=== PATIENT | female | born 1945 | race Caucasian/White ===

== ENCOUNTER 2016-10-10 14:56 | Observation (INO) | payer OTHER ==
[~2016-10-10] VITALS: Ht 154.9 cm; Wt 77.1 kg
[2016-10-10] MEDS ORDERED: ASPIRIN 324 MG CHEW PO STA (16:24)
[2016-10-10] MEDS ORDERED: NITROGLYCERIN OINT 2% 1GM PACKET EXT ONE (16:30)
--- NOTE | 2016-10-10 16:56 | DIAGNOSTIC IMAGING REPORT ---
CHEST ONE VIEW PORTABLE CLINICAL HISTORY: Chest pain. COMPARISON STUDY: No previous studies for comparison. FINDINGS: Lung volumes are at the lower limits of normal. There is no consolidation to suggest pneumonia. Pulmonary vascularity is normal. Moderate enlargement of the cardiac silhouette is noted. There may be a cardiac stent. IMPRESSION: 1. No acute cardiopulmonary findings. 2. Moderate cardiomegaly. Electronically signed by: Sanju Gannon M.D. 10/10/2016 4:55 PM Dictated Date/Time: 10/10/2016 4:52 PM
[2016-10-10] MEDS ORDERED: ROSU20TA PO (17:10)
[2016-10-10] MEDS ORDERED: VALS160T60 PO (17:10)
[2016-10-10] MEDS ORDERED: INSU100I2 PO (17:10)
[2016-10-10] MEDS ORDERED: BISO5TAB3 PO (17:10)
[2016-10-10] MEDS ORDERED: FURO-85 PO (17:10)
[2016-10-10] MEDS ORDERED: ALBU18002 INH (17:10)
[2016-10-10] MEDS ORDERED: CHOL20009 PO (17:10)
[2016-10-10] MEDS ORDERED: INSDGIPEN SC (17:10)
[2016-10-10] MEDS ORDERED: ASPI81TA28 PO (17:10)
[2016-10-10] MEDS ORDERED: ISOS30TA3 PO (17:10)
[2016-10-10] MEDS ORDERED: VTMB12 PO (17:10)
[2016-10-10] MEDS ORDERED: GLC/500 PO (17:10)
[2016-10-10] MEDS ORDERED: PANT40TA PO (17:10)
[2016-10-10] MEDS ORDERED: MONT1TAB3 PO (17:10)
[2016-10-10] MEDS ORDERED: OXYB5TAB74 PO (17:10)
[2016-10-10] MEDS ORDERED: RANO500T PO (17:10)
[2016-10-10] MEDS ORDERED: CLOP1TAB15 PO (17:10)
[2016-10-10 17:14] LABS: BASO % 0.2 %; BASO ABS # 0.02 K/uL (0-0.2); COMPLETE YES; EOS % 1.8 %; IG% 0.3 %; LYMPH % 15.1 %; LYMPH ABS # 1.82 K/uL (1.2-3.4); MEAN CELL VOLUME 88.9 fL (80-100); MEAN CORPUSCULAR HEMOGLOBIN 29.1 pg (25-34); MEAN CORPUSCULAR HGB CONC 32.8 g/dl (32-36); NEUT % 71.6 %; PLATELET COUNT 277 K/uL (130-400); WHITE BLOOD COUNT 12.02 K/uL (4.8-10.8)
[2016-10-10 17:26] LABS: PARTIAL THROMBOPLASTIN RATIO 1.1
[2016-10-10 17:40] LABS: BUN/CREATININE RATIO 16.1 (10-20); CALCIUM 9.9 mg/dl (8.5-10.1); CREATININE 0.98 mg/dl (0.60-1.20); POTASSIUM 3.6 mmol/L (3.5-5.1)
--- NOTE | 2016-10-10 18:09 | History and Physical ---
History & Physical Date & Time of Service: Oct 10, 2016 at 18:09 Chief Complaint: Left Chest Pain And Tightness Primary Care Physician: Michael Delatorre D.O. History of Present Illness Source: patient This is a 71 yo F with past medical hx of CAD s/p multiple PTCA done in [facility] , most recent was in last july 2016 her other medical hx includes Type 2 DM . HTN , hyperlipidemia presents to ED with complain of intermittent left sided chest wall pain discomfort, ongoing for last 6-7 days pt mentions last sat night she slept on her left side ,woke up with pain on left chest wall , going below her breast to her back had mild SOB , no chest heaviness ( felt like muscle pull /achy ) no dizzy spell through out these past few days she continued her daily activities , will get occasional pain /discomfort like muscle pull on and off came to ED for evaluation in ED was completely symptom free vitals remains stable initial cardiac markers unremarkable Social History Smoking Status: Never Smoker Allergies Coded Allergies: No Known Allergies (Unverified , 10/10/16) Home Medications Scheduled Aspirin (Aspirin Ec), 81 MG PO DAILY Bisoprolol Fumarate (Zebeta), 10 MG PO DAILY Cholecalciferol (Vitamin D), 2,000 UNITS PO DAILY Clopidogrel (Plavix), 75 MG PO DAILY Cyanocobalamin (Vitamin B-12), 500 MG PO DAILY Insulin Glargine (Lantus Solostar), 16 UNITS SC QPM Insulin Lispro (Human) (Humalog Kwikpen), 4 UNITS PO QAM Isosorbide Mononitrate Ext Rel (Imdur Ext Rel), 30 MG PO QAM Metformin Hcl (Glucophage), 500 MG PO BID Montelukast Sodium (Singulair), 10 MG PO DAILY Oxybutynin Chloride (Ditropan), 5 MG PO BID Pantoprazole (Protonix), 40 MG PO DAILY Ranolazine (Ranexa), 500 MG PO BID Rosuvastatin Calcium (Crestor), 20 MG PO DAILY Valsartan/Hctz (Diovan Hct 160MG/25MG), 1 TAB PO DAILY Scheduled PRN Albuterol Sulfate (Proair Respiclick), 2 PUFFS INH Q4 PRN for SOB/Wheezing Furosemide (Lasix), Unknown Dose PO DAILY PRN for Review of Systems Respiratory: + shortness of breath Cardiovascular: + chest pain Abdomen: No pain, No nausea, No vomiting, No diarrhea, No constipation, No GI bleeding, No problem reported Musculoskeletal: + muscle pain (on left chest wall ) Physical Exam Vital Signs Date Time Temp Pulse Resp B/P (MAP) Pulse Ox O2 Delivery O2 Flow Rate FiO2 10/10/16 17:45 69 18 176/79 98 Room Air 10/10/16 16:40 63 17 181/73 96 Room Air 10/10/16 16:36 63 10/10/16 15:07 95 Room Air 10/10/16 15:07 36.6 70 20 179/85 97 Room Air General Appearance: no apparent distress Head: normocephalic, atraumatic Eyes: sclerae normal Neck: supple, no JVD Respiratory/Chest: lungs clear, normal breath sounds, no respiratory distress, + pertinent finding (pain on palpation chest wall on left side ) Cardiovascular: regular rate, rhythm, no JVD, no murmur Abdomen/GI: normal bowel sounds, non tender, soft Extremities/Musculoskelatal: normal inspection, no calf tenderness, normal capillary refill, no pedal edema Neurologic/Psych: alert, normal mood/affect, oriented x 3 Skin: normal color, warm/dry, no rash Lymphatic: no adenopathy Diagnostics Laboratory Results Results Past 24 Hours Test 10/10/16 16:38 10/10/16 16:44 Range/Units White Blood Count 12.02 4.8-10.8 K/uL Red Blood Count 4.50 4.2-5.4 M/uL Hemoglobin 13.1 12.0-16.0 g/dL Hematocrit 40.0 37-47 % Mean Corpuscular Volume 88.9 80-100 fL Mean Corpuscular Hemoglobin 29.1 25-34 pg Mean Corpuscular Hemoglobin Concent 32.8 32-36 g/dl Platelet Count 277 130-400 K/uL Mean Platelet Volume 10.0 7.4-10.4 fL Neutrophils (%) (Auto) 71.6 % Lymphocytes (%) (Auto) 15.1 % Monocytes (%) (Auto) 11.0 % Eosinophils (%) (Auto) 1.8 % Basophils (%) (Auto) 0.2 % Neutrophils # (Auto) 8.60 1.4-6.5 K/uL Lymphocytes # (Auto) 1.82 1.2-3.4 K/uL Monocytes # (Auto) 1.32 0.11-0.59 K/uL Eosinophils # (Auto) 0.22 0-0.5 K/uL Basophils # (Auto) 0.02 0-0.2 K/uL RDW Standard Deviation 44.7 36.4-46.3 fL RDW Coefficient of Variation 13.6 11.5-14.5 % Immature Granulocyte % (Auto) 0.3 % Immature Granulocyte # (Auto) 0.04 0.00-0.02 K/uL Prothrombin Time 11.0 9.0-12.0 SECONDS Prothromb Time International Ratio 1.0 0.9-1.1 Activated Partial Thromboplast Time 29.4 21.0-31.0 SECONDS Partial Thromboplastin Ratio 1.1 Sodium Level 136 136-145 mmol/L Potassium Level 3.6 3.5-5.1 mmol/L Chloride Level 98 98-107 mmol/L Carbon Dioxide Level 32 21-32 mmol/L Anion Gap 6.0 3-11 mmol/L Blood Urea Nitrogen 16 7-18 mg/dl Creatinine 0.98 0.60-1.20 mg/dl Est Creatinine Clear Calc Drug Dose 49.7 ml/min Estimated GFR () 67.3 Estimated GFR (Non- 58.0 BUN/Creatinine Ratio 16.1 10-20 Random Glucose 141 70-99 mg/dl Calcium Level 9.9 8.5-10.1 mg/dl Bedside Troponin I < 0.030 0-0.045 ng/ml Diagnostic Radiology CHEST ONE VIEW PORTABLE CLINICAL HISTORY: Chest pain. COMPARISON STUDY: No previous studies for comparison. FINDINGS: Lung volumes are at the lower limits of normal. There is no consolidation to suggest pneumonia. Pulmonary vascularity is normal. Moderate enlargement of the cardiac silhouette is noted. There may be a cardiac stent. IMPRESSION: 1. No acute cardiopulmonary findings. 2. Moderate cardiomegaly. EKG EKG Normal sinus rhythm Left ventricular hypertrophy with repolarization abnormality Cannot rule out Septal infarct , age undetermined Abnormal ECG No previous ECGs available Impression Assessment and Plan CHEST PAIN : atypical for angina intermittent sharp chest pain for past 1 week with reproducible chest wall tenderness monitor in tele given cardiac hx -will check for serial cardiac markers ECHO ordered pt mentions of intermittent SOB D dimer elevated 520 CTA of chest ordered HX OF CAD : had multiple stents X7 at [facility] from 2012-july 2016 follows with Cardiology with [facility] mentions of recent stress test in july requests for medical records form [facility] pt will be continued on her cardiac meds -Aspirin , Plavix . ARB /statin TYPE 2 DM : cont home dose of Lantus hold metformin -pt will be given contrast for CTA of chest insulin SSI HTN : cont out pt meds HYPERLIPIDEMIA: on statin FULL CODE DVT PROPHYLAXIS : sub q heparin DISPOSITION : discharge home when medically stable Level of Care Telemetry Resuscitation Status FULL RESUSCITATION VTE Prophylaxis VTE Risk Assessment Done? Y/N: Yes Risk Level: Moderate Given or contraindicated: Unfractionated heparin SQ
[2016-10-10] MEDS ORDERED: ALUMINUM/MAGNESIUM/SIMETH (MAALOX MAX) 30 ML UDC PO PRN (18:15)
[2016-10-10] MEDS ORDERED: ONDANSETRON INJ 2 MG/ML 2 ML VIAL IV PRN (18:15)
[2016-10-10] MEDS ORDERED: POLYETHYLENE (MIRALAX) 17 GM PACK PO PRN (18:15)
[2016-10-10] MEDS ORDERED: MAGNESIUM HYDROXIDE SUSP 30 ML UDC PO PRN (18:15)
[2016-10-10] MEDS ORDERED: ZOLPIDEM TARTRATE 5 MG TAB PO PRN (18:15)
[2016-10-10] MEDS ORDERED: NITROGLYCERIN 0.4 MG SL PER TAB CHARGE SL PRN (18:15)
--- NOTE | 2016-10-10 19:08 | EMERGENCY ROOM VISIT NOTE ---
History Report prepared by Jelani: Jaylene Matthew Under the Supervision of: Dr. Jose Clemente M.D. First contact with patient: 16:20 Chief Complaint: CHEST PAIN Stated Complaint: LEFT CHEST PAIN AND TIGHTNESS Nursing Triage Summary: Patient ambulatory to triage for evaluation. Patient with a steady and upright gait, states "Last Thursday, when getting up out of bed, I had a lot of pain in the left side of my chest and ribs. I doctored it at home for a pulled muscle. I have gone to the chiropractor with no relief. They told me to come here on Thursday but I didn't feel like it. I have seven stents so I finally decided to come to be checked out. The pain comes and goes and is tight in nature. The pain worsens when I take a deep breath; I feel a little short of breath. I have no energy." History of Present Illness The patient is a 71 year old female who presents to the Emergency Room with complaints of waxing and waning left-sided chest pain beginning 6 days ago. She describes the pain as being tight and says that the pain varies from lasting seconds to lasting longer. Swallowing and taking deep breaths exacerbates the pain. The patient reports that when she woke up 6 days ago, she went to roll to her left side and felt pain. She states that at first she treated the pain as if she strained something. The patient states that she has been short of breath. She also had the chills last night, and swelling in her feet but states that the swelling is chronic. She reports that she has chest tightness right now. The patient has a history of stents and states that she did not have chest pain when she had her stents replaced. The patient denies any recent falls or lifting anything heavy. She has no history of clots in her legs and states that she does not smoke. The patient reports that she takes Aspirin at night. Source of History: patient Onset: 6 days ago Position: chest (left) Quality: other (described as being tight ) Timing: waxes/wanes Modifying Factors (Worsening): breathing (deep breaths and swallowing) Associated Symptoms: + SOB Review of Systems See HPI for pertinent positives & negatives. A total of 10 systems reviewed and were otherwise negative. Past Medical & Surgical Medical Problems: (1) Chest pain Family History No pertinent family history stated. Social History Smoking Status: Never Smoker Current/Historical Medications Scheduled Aspirin (Aspirin Ec), 81 MG PO DAILY Bisoprolol Fumarate (Zebeta), 10 MG PO DAILY Cholecalciferol (Vitamin D), 2,000 UNITS PO DAILY Clopidogrel (Plavix), 75 MG PO DAILY Cyanocobalamin (Vitamin B-12), 500 MG PO DAILY Insulin Glargine (Lantus Solostar), 16 UNITS SC QPM Insulin Lispro (Human) (Humalog Kwikpen), 4 UNITS PO QAM Isosorbide Mononitrate Ext Rel (Imdur Ext Rel), 30 MG PO QAM Metformin Hcl (Glucophage), 500 MG PO BID Montelukast Sodium (Singulair), 10 MG PO DAILY Oxybutynin Chloride (Ditropan), 5 MG PO BID Pantoprazole (Protonix), 40 MG PO DAILY Ranolazine (Ranexa), 500 MG PO BID Rosuvastatin Calcium (Crestor), 20 MG PO DAILY Valsartan/Hctz (Diovan Hct 160MG/25MG), 1 TAB PO DAILY Scheduled PRN Albuterol Sulfate (Proair Respiclick), 2 PUFFS INH Q4 PRN for SOB/Wheezing Furosemide (Lasix), Unknown Dose PO DAILY PRN for Allergies Coded Allergies: No Known Allergies (Unverified , 10/10/16) Physical Exam Vital Signs Date Time Temp Pulse Resp B/P (MAP) Pulse Ox O2 Delivery O2 Flow Rate FiO2 10/10/16 18:38 81 18 179/67 98 Room Air 10/10/16 17:45 69 18 176/79 98 Room Air 10/10/16 16:40 63 17 181/73 96 Room Air 10/10/16 16:36 63 10/10/16 15:07 95 Room Air 10/10/16 15:07 36.6 70 20 179/85 97 Room Air Physical Exam Constitutional: Vital signs reviewed. Eyes: Pupils are equal round reactive to light. Conjunctiva are noninjected. ENT: Pharynx is clear without erythema or exudate. Mucous membranes are moist. Neck supple without meningeal signs. Respiratory: Clear to auscultation bilaterally. Breath sounds are equal bilaterally. Cardiovascular: Regular rate and rhythm. No rubs or gallops. GI: Soft, nondistended and nontender. Bowel sounds are present. Musculoskeletal: No peripheral edema. No lower extremity tenderness. Integumentary: No cyanosis. Neurological: The patient is awake and alert. No focal deficits. Psychiatric: Normal affect. Medical Decision & Procedures ER Provider Diagnostic Interpretation: X-ray results as stated below per interpretation by me and the radiologist: CHEST ONE VIEW PORTABLE CLINICAL HISTORY: Chest pain. COMPARISON STUDY: No previous studies for comparison. FINDINGS: Lung volumes are at the lower limits of normal. There is no consolidation to suggest pneumonia. Pulmonary vascularity is normal. Moderate enlargement of the cardiac silhouette is noted. There may be a cardiac stent. IMPRESSION: 1. No acute cardiopulmonary findings. 2. Moderate cardiomegaly. Electronically signed by: Sanju Gannon M.D. 10/10/2016 4:55 PM Dictated Date/Time: 10/10/2016 4:52 PM Laboratory Results 10/10/16 16:38 Red Blood Count 4.50, Mean Corpuscular Volume 88.9, Mean Corpuscular Hemoglobin 29.1, Mean Corpuscular Hemoglobin Concent 32.8, Mean Platelet Volume 10.0, Neutrophils (%) (Auto) 71.6, Lymphocytes (%) (Auto) 15.1, Monocytes (%) (Auto) 11.0, Eosinophils (%) (Auto) 1.8, Basophils (%) (Auto) 0.2, Neutrophils # (Auto ) 8.60, Lymphocytes # (Auto) 1.82, Monocytes # (Auto) 1.32, Eosinophils # (Auto ) 0.22, Basophils # (Auto) 0.02 10/10/16 16:38 Test 10/10/16 16:38 10/10/16 16:44 White Blood Count 12.02 K/uL (4.8-10.8) Red Blood Count 4.50 M/uL (4.2-5.4) Hemoglobin 13.1 g/dL (12.0-16.0) Hematocrit 40.0 % (37-47) Mean Corpuscular Volume 88.9 fL (80-100) Mean Corpuscular Hemoglobin 29.1 pg (25-34) Mean Corpuscular Hemoglobin Concent 32.8 g/dl (32-36) Platelet Count 277 K/uL (130-400) Mean Platelet Volume 10.0 fL (7.4-10.4) Neutrophils (%) (Auto) 71.6 % Lymphocytes (%) (Auto) 15.1 % Monocytes (%) (Auto) 11.0 % Eosinophils (%) (Auto) 1.8 % Basophils (%) (Auto) 0.2 % Neutrophils # (Auto) 8.60 K/uL (1.4-6.5) Lymphocytes # (Auto) 1.82 K/uL (1.2-3.4) Monocytes # (Auto) 1.32 K/uL (0.11-0.59) Eosinophils # (Auto) 0.22 K/uL (0-0.5) Basophils # (Auto) 0.02 K/uL (0-0.2) RDW Standard Deviation 44.7 fL (36.4-46.3) RDW Coefficient of Variation 13.6 % (11.5-14.5) Immature Granulocyte % (Auto) 0.3 % Immature Granulocyte # (Auto) 0.04 K/uL (0.00-0.02) Prothrombin Time 11.0 SECONDS (9.0-12.0) Prothromb Time International Ratio 1.0 (0.9-1.1) Activated Partial Thromboplast Time 29.4 SECONDS (21.0-31.0) Partial Thromboplastin Ratio 1.1 Anion Gap 6.0 mmol/L (3-11) Est Creatinine Clear Calc Drug Dose 49.7 ml/min Estimated GFR () 67.3 Estimated GFR (Non- 58.0 BUN/Creatinine Ratio 16.1 (10-20) Calcium Level 9.9 mg/dl (8.5-10.1) Bedside Troponin I < 0.030 ng/ml (0-0.045) Laboratory results as reviewed by me. Medications Administered Medications (Trade) Dose Ordered Sig/Gabrielle Route Start Time Stop Time Status Last Admin Dose Admin Aspirin (Aspirin Chew) 324 mg NOW STAT PO 10/10/16 16:24 10/10/16 16:30 DC 10/10/16 16:45 324 MG Nitroglycerin (Nitroglycerin 2% Oint) 0.5 inch NOW ONCE EXT 10/10/16 16:30 10/10/16 16:31 DC 10/10/16 16:47 0.5 INCH ECG Indication: chest pain Rate (beats per minute): 69 Rhythm: normal sinus Findings: T-wave inversion (in Lead I and Lead aVL), no ectopy, other (left ventricular hypertrophy ) ED Course 1623: The patient was evaluated in room B9. A complete history and physical exam was performed. 1624: Ordered Aspirin 324 mg PO. 1630: Ordered Nitroglycerin 0.5 inch EXT. 1704: The patient states that her chest tightness is improved and that she is breathing better after the Nitroglycerin. 1733: The patient states that her chest discomfort is completely resolved. 1748: I spoke with Kae Preciado PA-C. We discussed the patient and her results. The patient will be further evaluated by Dr. Sánchez. Medical Decision This is a 71-year-old female who presents with chest discomfort. Differential diagnosis includes unstable angina, [place], pleurisy, GERD, anxiety. I did perform a limited focused review of portions of the patient's old chart on the electronic medical record. The patient has had no recent pertinent visits to this hospital. I did evaluate the patient as noted above. The patient is presenting with intermittent chest tightness for the past 6 days. She has chest tightness at this time. She has a prior history of 7 cardiac stents. IV access was established. The patient was placed on a continuous document manager. I did treat the patient with nitroglycerin paste and aspirin. I did order and personally review the patient's 12-lead EKG and chest x-ray as described above. Her twelve-lead EKG is abnormal with T-wave inversions as described above. 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 I did order and review the patient's blood work as noted in the electronic medical record. Her troponin is negative. I did reassess the patient. Her chest pain is completely resolved after receiving the nitroglycerin. Given her abnormal EKG, prior history of cardiac disease and her chest pain relieved with nitroglycerin I did recommend hospitalization for repeat cardiac enzymes and further workup. I did discuss case with the hospice and field case manager. Medication Reconcilliation Current Medication List: was personally reviewed by me Blood Pressure Screening Patient's blood pressure: Elevated blood pressure Consults Time Called: 1700 Consulting Physician: Kae Preciado PA-C Returned Call: 1748 I spoke with Kae Preciado PA-C. We discussed the patient and her results. The patient will be further evaluated by Dr. Sánchez. Impression Primary Impression: Left sided chest pain Additional Impression: Abnormal ECG Scribe Attestation The scribe's documentation has been prepared under my direct and personally reviewed by me in its entirety. I confirm that the note above accurately reflects all work, treatment, procedures, and medical decision making performed by me. Departure Information Dispostion Being Evaluated By Hospitalist Referrals Moncho Jackson M.D. (PCP) Patient Instructions My [facility] Problem Qualifiers
[2016-10-10] MEDS ORDERED: ALBUTEROL HFA 8 GM INHALER INH PRN (19:15)
[2016-10-10] MEDS ORDERED: GLUCAGON FOR INJ 1 MG VIAL SQ PRN (19:30)
[2016-10-10] MEDS ORDERED: GLUCOSE 40% GEL 15 GM TUBE PO PRN (19:30)
[2016-10-10] MEDS ORDERED: IV FLUIDS COMPLETED PRN (19:30)
[2016-10-10] MEDS ORDERED: DEXTROSE 50% 50 ML SYR IV PRN (19:30)
[2016-10-10] MEDS ORDERED: GLUCOSE 10 TABS/TUBE PO PRN (19:30)
[2016-10-10 20:03] VITALS: BP 179/67; PULSE 81; TEMP 36.6; O2SAT 98; Ht 154.9 cm; Wt 77.1 kg
[2016-10-10] MEDS ORDERED: OPTIRAY 320 IV PRN (20:30)
--- NOTE | 2016-10-10 20:40 | DIAGNOSTIC IMAGING REPORT ---
CT ANGIOGRAPHY OF THE CHEST, PULMONARY EMBOLUS PROTOCOL CLINICAL HISTORY: Shortness of breath. Elevated d-dimer. Chest pain. COMPARISON STUDY: Chest radiograph performed earlier today. TECHNIQUE: Following IV administration of 101 mL of [id number]-320, helical axial images of the chest were obtained utilizing the pulmonary embolus protocol. Maximal intensity projections and sagittal and coronal reformats were viewed on an independent 3D workstation. IV contrast was administered without complication. A dose lowering technique was utilized adhering to the principles of ALARA. CT DOSE: 498.04 mGy.cm FINDINGS: No pulmonary emboli are identified. The heart is mildly enlarged. There is a trace pericardial effusion. There are multiple stents within the left anterior descending coronary artery. No enlarged thoracic lymph nodes are present. There is no evidence of thoracic aortic dissection. The central airways are patent. There is no consolidation to suggest pneumonia. No pneumothorax or pleural effusion is present. Linear and ground glass opacities reflect atelectasis. Bony thorax is unremarkable. A 2.9 cm right adrenal lesion is partially imaged on this exam but measures near water attenuation. This suggests an adenoma. IMPRESSION: 1. No pulmonary emboli identified. 2. Trace pericardial effusion. 3. Mild cardiomegaly. 4. 2.9 cm right adrenal lesion suggestive of an adenoma. Electronically signed by: Sanju Gannon M.D. 10/10/2016 8:38 PM Dictated Date/Time: 10/10/2016 8:26 PM
[2016-10-10] MEDS ORDERED: INSULIN GLARGINE SOLOSTAR 100 UNITS/ML 3 ML PEN SC SCH (21:00)
[2016-10-10] MEDS: INSULIN HUMAN REGULAR SC SCH (21:00)
[2016-10-10] MEDS: OXYBUTYNIN CHLORIDE 5 MG TAB PO SCH (21:34)
[2016-10-10] MEDS: RANOLAZINE 500 MG ER TAB PO SCH (21:34)
[2016-10-10] MEDS: HEPARIN SOD 5000 UNIT/0.5 ML CARP SQ SCH (21:37)
[2016-10-10] MEDS: ACETAMINOPHEN 325 MG TAB PO PRN (23:35)
[2016-10-10 23:49] VITALS: BP 164/80; PULSE 64; TEMP 36.6; O2SAT 96
[2016-10-11 00:58] LABS: CKMB/CK RATIO 2.2 (0-3.0)
[2016-10-11 04:29] VITALS: BP 176/77; PULSE 68; TEMP 36.4; O2SAT 97
[2016-10-11] MEDS: HEPARIN SOD 5000 UNIT/0.5 ML CARP SQ SCH ×2 (05:39→14:00)
[2016-10-11 05:56] VITALS: BP 158/75
[2016-10-11 07:52] VITALS: BP 169/89; PULSE 55; TEMP 36.5; O2SAT 95
[2016-10-11 08:37] LABS: CHOLESTEROL/HDL RATIO 1.8; ESTIMATED AVERAGE GLUCOSE 166 mg/dl; HA1C FLAG Normal (Normal)
[2016-10-11 08:38] LABS: CKMB/CK RATIO 2.2 (0-3.0)
[2016-10-11] MEDS ORDERED: ASPIRIN 81 MG ECTAB PO SCH ×2 (09:00)
[2016-10-11] MEDS ORDERED: CHOLECALCIFEROL 1000 INTER.UNIT TAB PO SCH (09:00)
[2016-10-11] MEDS ORDERED: HYDROCHLOROTHIAZIDE 25 MG TAB PO SCH (09:00)
[2016-10-11] MEDS ORDERED: CLOPIDOGREL BISULFATE 75 MG TAB PO SCH (09:00)
[2016-10-11] MEDS ORDERED: ROSUVASTATIN CALCIUM 20 MG TAB PO SCH (09:00)
[2016-10-11] MEDS ORDERED: VALSARTAN 80 MG TAB PO SCH (09:00)
[2016-10-11] MEDS ORDERED: PANTOprazole SOD 40 MG TAB PO SCH (09:00)
[2016-10-11] MEDS ORDERED: VALSARTAN/HCTZ 80/12.5 MG TAB PO SCH (09:00)
[2016-10-11] MEDS ORDERED: BISOPROLOL FUMARATE 10 MG TAB PO SCH (09:00)
[2016-10-11] MEDS ORDERED: MONTELUKAST SOD 10 MG TAB PO SCH (09:00)
[2016-10-11] MEDS ORDERED: CYANOCOBALAMIN 500 MCG TAB (VIT B-12) PO SCH (09:00)
[2016-10-11] MEDS ORDERED: ISOSORBIDE MONONITRATE 30 MG TABCR PO SCH (09:00)
[2016-10-11] MEDS: INSULIN HUMAN REGULAR SC SCH ×2 (09:03→11:00)
[2016-10-11] MEDS: RANOLAZINE 500 MG ER TAB PO SCH (09:04)
[2016-10-11] MEDS: OXYBUTYNIN CHLORIDE 5 MG TAB PO SCH (09:07)
--- NOTE | 2016-10-11 10:24 | Discharge Instructions ---
Discharge Instructions Date of Service Oct 11, 2016. Admission Reason for Admission: Chest Pain Discharge Discharge Diagnosis / Problem: CHEST PAIN /ATYPICAL FOR ANGINA /NO EVIDENCE OF ACUTE CORONARY EVENT Discharge Goals Goal(s): Decrease discomfort, Diagnostic testing Activity Recommendations Activity Limitations: resume your previous activity Shower/Bathe: no limitations . Instructions / Follow-Up Instructions / Follow-Up PLEASE HAVE HOSPITAL FOLLOW UP WITH FAMILY PHYSICIAN IN A WEEK DO NOT TAKE METFORMIN FOR 2 DAYS -CONTRAST GIVEN IN CT CHEST CAN START TAKING ON Thursday10/13/16 . Current Hospital Diet Patient's current hospital diet: AHA Diet (Heart Healthy), Diabetes Type 2 Diet Discharge Diet Recommended Diet: AHA Diet (Heart Healthy), Diabetes Type 2 Diet Pending Studies Studies pending at discharge: no Laboratory Results Hemoglobin A1c Test 10/11/16 07:41 Range/Units Estimated Average Glucose 166 mg/dl Hemoglobin A1c 7.4 H 4.5-5.6 % Lipid Panel Test 10/11/16 07:41 Range/Units Triglycerides Level 87 0-150 mg/dl Cholesterol Level 113 0-200 mg/dl HDL Cholesterol 63 mg/dl Cholesterol/HDL Ratio 1.8 LDL Cholesterol, Calculated 33 mg/dl Medical Emergencies . Who to Call and When: Medical Emergencies: If at any time you feel your situation is an emergency, please call 911 immediately. . Non-Emergent Contact Non-Emergency issues call your: Primary Care Provider . . "Provider Documentation" section prepared by Eugenie Sánchez. . VTE Core Measure Inpt VTE Proph given/why not?: Unfractionated heparin SQ
[2016-10-11] MEDS: ACETAMINOPHEN 325 MG TAB PO PRN (11:38)
[2016-10-11 11:46] VITALS: BP 146/76; PULSE 69; TEMP 36.5; O2SAT 92
--- NOTE | 2016-10-11 14:37 | Progress Note ---
Internal Med Progress Note Date of Service: Oct 11, 2016. Provider Documentation: SUBJECTIVE: no complain of chest heaviness no SOB or discomfort wounding what caused her to have the aching pain on left side pt is counselled possible musculoskeletal pain no evidence of acute cardiac event stable to be discharged home OBJECTIVE: Vital Signs-as noted below Exam: General-no sign of distress Eyes-sclera non icteric ENT-NAD Neck-no JVD Lungs-CTA Heart-regular S1/S2 Abdomen-soft, non tender Extremities-no edema or rash Neuro-AAO x3, no focal deficit Lab data as noted below. ASSESSMENT & PLAN: CHEST PAIN : atypical for angina/musculoskeletal pain presented intermittent sharp chest pain for past 1 week with reproducible chest wall tenderness no arrhythmia in tele serial cardiac markers -negative D dimer elevated 520 CTA of chest ordered -no PE feels fine today does not have any symptom stable to be discharged home today HX OF CAD : had multiple stents X7 at [facility] from 2012-july 2016 follows with Cardiology with [facility] mentions of recent stress test in july requests for medical records form [facility] pt will be continued on her cardiac meds -Aspirin , Plavix . ARB /statin discharge home today with out pt follow up with Cardiology TYPE 2 DM : cont home dose of Lantus hold metformin -pt will be given contrast for CTA of chest pt is asked to not take Metformin for another 48 hrs drink plenty of fluid can resume taking Metformin on Thursday10/13/16 insulin SSI HTN : cont out pt meds HYPERLIPIDEMIA: on statin FULL CODE DVT PROPHYLAXIS : sub q heparin DISPOSITION : discharge home today Vital Signs: Date Time Temp Pulse Resp B/P (MAP) Pulse Ox O2 Delivery O2 Flow Rate FiO2 10/11/16 13:06 Room Air 10/11/16 11:46 36.5 69 18 146/76 (99) 92 10/11/16 07:57 Room Air 10/11/16 07:52 36.5 55 17 169/89 (115) 95 Room Air 10/11/16 05:56 158/75 (102) 10/11/16 04:29 36.4 68 20 176/77 (110) 97 Room Air 10/11/16 04:00 Room Air 10/11/16 00:00 Room Air 10/10/16 23:49 36.6 64 20 164/80 (108) 96 Room Air 10/10/16 20:03 36.6 81 18 179/67 98 Room Air 10/10/16 18:38 81 18 179/67 98 Room Air 10/10/16 17:45 69 18 176/79 98 Room Air 10/10/16 16:40 63 17 181/73 96 Room Air 10/10/16 16:36 63 10/10/16 15:07 95 Room Air 10/10/16 15:07 36.6 70 20 179/85 97 Room Air Lab Results: Results Past 24 Hours Test 10/10/16 16:38 10/10/16 16:44 10/10/16 20:26 10/11/16 00:11 Range/Units White Blood Count 12.02 4.8-10.8 K/uL Red Blood Count 4.50 4.2-5.4 M/uL Hemoglobin 13.1 12.0-16.0 g/dL Hematocrit 40.0 37-47 % Mean Corpuscular Volume 88.9 80-100 fL Mean Corpuscular Hemoglobin 29.1 25-34 pg Mean Corpuscular Hemoglobin Concent 32.8 32-36 g/dl Platelet Count 277 130-400 K/uL Mean Platelet Volume 10.0 7.4-10.4 fL Neutrophils (%) (Auto) 71.6 % Lymphocytes (%) (Auto) 15.1 % Monocytes (%) (Auto) 11.0 % Eosinophils (%) (Auto) 1.8 % Basophils (%) (Auto) 0.2 % Neutrophils # (Auto) 8.60 1.4-6.5 K/uL Lymphocytes # (Auto) 1.82 1.2-3.4 K/uL Monocytes # (Auto) 1.32 0.11-0.59 K/uL Eosinophils # (Auto) 0.22 0-0.5 K/uL Basophils # (Auto) 0.02 0-0.2 K/uL RDW Standard Deviation 44.7 36.4-46.3 fL RDW Coefficient of Variation 13.6 11.5-14.5 % Immature Granulocyte % (Auto) 0.3 % Immature Granulocyte # (Auto) 0.04 0.00-0.02 K/uL Prothrombin Time 11.0 9.0-12.0 SECONDS Prothromb Time International Ratio 1.0 0.9-1.1 Activated Partial Thromboplast Time 29.4 21.0-31.0 SECONDS Partial Thromboplastin Ratio 1.1 D-Dimer 520 0-500 ug/L FEU Sodium Level 136 136-145 mmol/L Potassium Level 3.6 3.5-5.1 mmol/L Chloride Level 98 98-107 mmol/L Carbon Dioxide Level 32 21-32 mmol/L Anion Gap 6.0 3-11 mmol/L Blood Urea Nitrogen 16 7-18 mg/dl Creatinine 0.98 0.60-1.20 mg/dl Est Creatinine Clear Calc Drug Dose 49.7 ml/min Estimated GFR () 67.3 Estimated GFR (Non- 58.0 BUN/Creatinine Ratio 16.1 10-20 Random Glucose 141 70-99 mg/dl Calcium Level 9.9 8.5-10.1 mg/dl Bedside Troponin I < 0.030 0-0.045 ng/ml Bedside Glucose 123 70-90 mg/dl Total Creatine Kinase 51 26-192 U/L Creatine Kinase MB 1.1 0.5-3.6 ng/ml Creatine Kinase MB Ratio 2.2 0-3.0 Troponin I < 0.015 0-0.045 ng/ml Test 10/11/16 07:41 10/11/16 08:01 10/11/16 11:27 Range/Units Estimated Average Glucose 166 mg/dl Hemoglobin A1c 7.4 4.5-5.6 % Total Creatine Kinase 54 26-192 U/L Creatine Kinase MB 1.2 0.5-3.6 ng/ml Creatine Kinase MB Ratio 2.2 0-3.0 Troponin I < 0.015 0-0.045 ng/ml Triglycerides Level 87 0-150 mg/dl Cholesterol Level 113 0-200 mg/dl HDL Cholesterol 63 mg/dl LDL Cholesterol, Calculated 33 mg/dl VLDL Cholesterol, Calculated 17 mg/dl Cholesterol/HDL Ratio 1.8 Bedside Glucose 118 151 70-90 mg/dl
[2016-10-11 14:38] VITALS: BP 146/76; PULSE 69; TEMP 36.5; O2SAT 92
--- NOTE | 2016-10-11 14:38 | Discharge Summary ---
Discharge Summary Date of Service Oct 11, 2016. Discharge Summary Admission Date: Oct 10, 2016 at 18:04 Discharge Date: Oct 11, 2016 Discharge Disposition: Home Principal Diagnosis: CHEST PAIN /ATYPICAL FOR ANGINA /NO EVIDENCE OF ACUTE CORONARY EVENT Procedures: CT CHEST WITH CONTRAST : IMPRESSION: 1. No pulmonary emboli identified. 2. Trace pericardial effusion. 3. Mild cardiomegaly. 4. 2.9 cm right adrenal lesion suggestive of an adenoma. Medication Reconciliation Continued Medications: Albuterol Sulfate (Proair Respiclick) 108 Mcg/Act Aer 2 PUFFS INH Q4 PRN for SOB/Wheezing Aspirin (Aspirin Ec) 81 Mg Tab 81 MG PO DAILY Bisoprolol Fumarate (Zebeta) 5 Mg Tab 10 MG PO DAILY, TAB Cholecalciferol (Vitamin D) 2,000 Unit Tab 2000 UNITS PO DAILY Clopidogrel (Plavix) 75 Mg Tab 75 MG PO DAILY, TAB Cyanocobalamin (Vitamin B-12) 500 Mcg Tab 500 MG PO DAILY Furosemide (Lasix) 20 Mg Tab Unknown Dose PO DAILY PRN for , TAB Insulin Glargine (Lantus Solostar) 100 Unit/Ml Inj 16 UNITS SC QPM, PEN Insulin Lispro (Human) (Humalog Kwikpen) 100 Unit/Ml Inj 4 UNITS PO QAM Isosorbide Mononitrate Ext Rel (Imdur Ext Rel) 30 Mg Ertab 30 MG PO QAM, TAB Metformin Hcl (Glucophage) 500 Mg Tab 500 MG PO BID, TAB Montelukast Sodium (Singulair) 10 Mg Tab 10 MG PO DAILY, TAB Oxybutynin Chloride (Ditropan) 5 Mg Tab 5 MG PO BID, TAB Pantoprazole (Protonix) 40 Mg Tab 40 MG PO DAILY, #30 TAB Ranolazine (Ranexa) 500 Mg Tab 500 MG PO BID for 90 Days, #180 TAB 3 Refills Rosuvastatin Calcium (Crestor) 20 Mg Tab 20 MG PO DAILY, TAB Valsartan/Hctz (Diovan Hct 160MG/25MG) 1 Tab Tab 1 TAB PO DAILY, TAB Admission Information HPI (per Admitting provider): This is a 71 yo F with past medical hx of CAD s/p multiple PTCA done in [facility] , most recent was in last july 2016 her other medical hx includes Type 2 DM . HTN , hyperlipidemia presents to ED with complain of intermittent left sided chest wall pain discomfort, ongoing for last 6-7 days pt mentions last sat night she slept on her left side ,woke up with pain on left chest wall , going below her breast to her back had mild SOB , no chest heaviness ( felt like muscle pull /achy ) no dizzy spell through out these past few days she continued her daily activities , will get occasional pain /discomfort like muscle pull on and off came to ED for evaluation in ED was completely symptom free vitals remains stable initial cardiac markers unremarkable Physical Exam (per Admitting): General Appearance: no apparent distress Head: normocephalic, atraumatic Eyes: sclerae normal Neck: supple, no JVD Respiratory/Chest: lungs clear, normal breath sounds, no respiratory distress, + pertinent finding (pain on palpation chest wall on left side ) Cardiovascular: regular rate, rhythm, no JVD, no murmur Abdomen/GI: normal bowel sounds, non tender, soft Extremities/Musculoskelatal: normal inspection, no calf tenderness, normal capillary refill, no pedal edema Neurologic/Psych: alert, normal mood/affect, oriented x 3 Skin: normal color, warm/dry, no rash Lymphatic: no adenopathy Hospital Course CHEST PAIN : atypical for angina/musculoskeletal pain presented intermittent sharp chest pain for past 1 week with reproducible chest wall tenderness no arrhythmia in tele serial cardiac markers -negative D dimer elevated 520 CTA of chest ordered -no PE feels fine today does not have any symptom stable to be discharged home today HX OF CAD : had multiple stents X7 at [facility] from 2012-july 2016 follows with Cardiology with [facility] mentions of recent stress test in july requests for medical records form [facility] pt will be continued on her cardiac meds -Aspirin , Plavix . ARB /statin discharge home today with out pt follow up with Cardiology TYPE 2 DM : cont home dose of Lantus hold metformin -pt will be given contrast for CTA of chest pt is asked to not take Metformin for another 48 hrs drink plenty of fluid can resume taking Metformin on Thursday10/13/16 insulin SSI HTN : cont out pt meds HYPERLIPIDEMIA: on statin FULL CODE DVT PROPHYLAXIS : sub q heparin DISPOSITION : discharge home today Discharge Instructions Discharge Instructions Date of Service Oct 11, 2016. Admission Reason for Admission: Chest Pain Discharge Discharge Diagnosis / Problem: CHEST PAIN /ATYPICAL FOR ANGINA /NO EVIDENCE OF ACUTE CORONARY EVENT Discharge Goals Goal(s): Decrease discomfort, Diagnostic testing Activity Recommendations Activity Limitations: resume your previous activity Shower/Bathe: no limitations . Instructions / Follow-Up Instructions / Follow-Up PLEASE HAVE HOSPITAL FOLLOW UP WITH FAMILY PHYSICIAN IN A WEEK DO NOT TAKE METFORMIN FOR 2 DAYS -CONTRAST GIVEN IN CT CHEST CAN START TAKING ON Thursday10/13/16 . Current Hospital Diet Patient's current hospital diet: AHA Diet (Heart Healthy), Diabetes Type 2 Diet Discharge Diet Recommended Diet: AHA Diet (Heart Healthy), Diabetes Type 2 Diet Pending Studies Studies pending at discharge: no Laboratory Results Hemoglobin A1c Test 10/11/16 07:41 Range/Units Estimated Average Glucose 166 mg/dl Hemoglobin A1c 7.4 H 4.5-5.6 % Lipid Panel Test 10/11/16 07:41 Range/Units Triglycerides Level 87 0-150 mg/dl Cholesterol Level 113 0-200 mg/dl HDL Cholesterol 63 mg/dl Cholesterol/HDL Ratio 1.8 LDL Cholesterol, Calculated 33 mg/dl Medical Emergencies . Who to Call and When: Medical Emergencies: If at any time you feel your situation is an emergency, please call 911 immediately. . Non-Emergent Contact Non-Emergency issues call your: Primary Care Provider . . "Provider Documentation" section prepared by Eugenie Sánchez. . VTE Core Measure Inpt VTE Proph given/why not?: Unfractionated heparin SQ
--- NOTE | 2016-10-11 19:10 | ECHOCARDIOGRAM REPORT ---
*NOTICE TO RECEIVING LIBERTARIAN AGENCY This information is strictly Confidential and protected under [place] law. [place] law prohibits you from making any further disclosure of this information unless further disclosure is expressly permitted by the written consent of the person to whom it pertains or is authorized by law. A general authorization for the release of medical or other information is not sufficient for this purpose. Hospital accepts no responsibility if the information is made available to any other person, INCLUDING THE PATIENT. Interpretation Summary * Name: NASH NAPOLES Study Date: 10/11/2016 07:33 AM BP: 158/75 mmHg * Patient Location: [facility]\S\N288\S\2 HR: 68 * : 1945 (M/d/yyyy) Gender: Female Height: 61 in * Age: 71 yrs Ethnicity: [place] Weight: 171 lb * Ordering Physician: Eugenie Sánchez * Referring Physician: Self, Referred * Performed By: Renetta Ricketts RCS * * Reason For Study: Chest Pain * BSA: 1.8 m2 * -- Conclusions -- * The left ventricular wall motion is normal. * Left ventricular systolic function is normal. * The LV Ejection Fraction = 60-65%. * There is a trace to small circumferential pericardial effusion. * There are no echocardiographic indications of cardiac tamponade. * Diastolic dysfunction, Grade II (pseudonormalization pattern). * Mild pulmonary hypertension is present. * The calculated PA systolic pressure=44 mm Hg. * The findings of trace to small circumferential pericardial effusion were reported to Dr Sánchez by telephone on 10/11/16 at 6:50 pm. Procedure Details * A complete two-dimensional transthoracic echocardiogram was performed (2D, M-mode, Doppler and color flow Doppler). Left Ventricle * The left ventricle is normal in size. * There is normal left ventricular wall thickness. * Left ventricular systolic function is normal. * Ejection Fraction = 60-65%. * The left ventricular wall motion is normal. Right Ventricle * The right ventricle is normal in size and function. Atria * The left atrial size is normal. * Right atrial size is normal. * There is no evidence of atrial septal defect, but resolution does not allow assessment for a patent foramen ovale. Mitral Valve * The mitral valve is normal. * There is no mitral valve stenosis. * There is mild mitral regurgitation. Tricuspid Valve * The tricuspid valve is normal. * There is no tricuspid stenosis. * Significant tricuspid regurgitation is absent. * Mild pulmonary hypertension is present. The calculated PA systolic pressure=44 mm Hg. Aortic Valve * The aortic valve is trileaflet. * Aortic stenosis is absent. * There is no significant aortic regurgitation. Pulmonic Valve * The pulmonary valve is not well seen, but the Doppler examination is normal without significant regurgitation or stenosis. Great Vessels * The aortic root and proximal ascending aorta are normal sized. Pericardium/Pleural * There is a trace to small circumferential pericardial effusion. * There are no echocardiographic indications of cardiac tamponade. Great Vessels * Normal inferior vena cava diameter and respiratory variation suggests normal central venous pressure. Left Ventricular Diastolic Function * Diastolic dysfunction, Grade II (pseudonormalization pattern). MMode 2D Measurements and Calculations IVSd 1.0 cm IVSs 1.1 cm LVIDd 4.3 cm LVIDs 3.1 cm LVPWd 0.92 cm LVPWs 1.2 cm IVS/LVPW 1.1 FS 29.6 % EDV(Teich) 85.2 ml ESV(Teich) 36.7 ml EF(Teich) 56.9 % EDV(cubed) 82.2 ml ESV(cubed) 28.6 ml EF(cubed) 65.1 % % IVS thick 8.4 % % LVPW thick 30.8 % LV mass(C)d 138.1 grams LV mass(C)dI 78.1 grams/m\S\2 LV mass(C)s 104.8 grams LV mass(C)sI 59.3 grams/m\S\2 CO(Teich) 3.0 l/min CI(Teich) 1.7 l/min/m\S\2 SV(Teich) 48.5 ml SI(Teich) 27.5 ml/m\S\2 CO(cubed) 3.3 l/min CI(cubed) 1.9 l/min/m\S\2 SV(cubed) 53.5 ml SI(cubed) 30.3 ml/m\S\2 Ao root diam 3.2 cm Ao root area 8.0 cm\S\2 ACS 1.5 cm LA dimension 3.7 cm asc Aorta Diam 2.9 cm LA/Ao 1.2 LVAd ap4 34.5 cm\S\2 LVLd ap4 8.7 cm EDV(MOD-sp4) 113.0 ml LVAs ap4 20.8 cm\S\2 LVLs ap4 6.9 cm ESV(MOD-sp4) 53.0 ml EF(MOD-sp4) 53.1 % LVAd ap2 29.8 cm\S\2 LVLd ap2 8.3 cm EDV(MOD-sp2) 87.0 ml LVAs ap2 17.6 cm\S\2 LVLs ap2 7.1 cm ESV(MOD-sp2) 37.0 ml EF(MOD-sp2) 57.5 % CO(MOD-sp4) 3.7 l/min CI(MOD-sp4) 2.1 l/min/m\S\2 SV(MOD-sp4) 60.0 ml SI(MOD-sp4) 33.9 ml/m\S\2 CO(MOD-sp2) 3.1 l/min CI(MOD-sp2) 1.8 l/min/m\S\2 SV(MOD-sp2) 50.0 ml SI(MOD-sp2) 28.3 ml/m\S\2 Doppler Measurements and Calculations MV E max sarita 133.3 cm/sec MV A max sarita 94.4 cm/sec MV E/A 1.4 MV P1/2t max sarita 157.5 cm/sec MV P1/2t 61.0 msec MVA(P1/2t) 3.6 cm\S\2 MV dec slope 756.3 cm/sec\S\2 MV dec time 0.16 sec Ao V2 max 140.1 cm/sec Ao max PG 7.8 mmHg Ao max PG (full) 5.7 mmHg LV V1 max PG 2.1 mmHg LV V1 max 73.0 cm/sec PA V2 max 93.1 cm/sec PA max PG 3.5 mmHg TR max sarita 270.4 cm/sec
== END 2016-10-11 15:13 | disposition home or self-care (01) ==
LOC: C.EDB 14:57 → C.MED 18:04 → ENRESERV 18:40
PROVIDERS: ADMIT Hospitalist; ATTEND Hospitalist
DX: R07.89 Other chest pain (principal); Z79.82 Long term (current) use of aspirin; Z79.4 Long term (current) use of insulin; I25.10 Atherosclerotic heart disease of native coronary artery without angina pectoris; Z98.61 Coronary angioplasty status; E11.9 Type 2 diabetes mellitus without complications; I10 Essential (primary) hypertension; E78.5 Hyperlipidemia, unspecified